=== PATIENT | male | born 1985 | race Caucasian/White ===

== ENCOUNTER 2018-10-15 10:21 | Outpatient (CLI) | payer OTHER ==
--- NOTE | 2018-10-15 12:42 | MRI Report ---
Reason: PAIN IN LEFT KNEE Procedure Date: 10/15/2018 Accession Number: [id number] / [id number] Procedure: MRI - Knee LT W/O CPT Code: FULL RESULT: EXAM: LEFT KNEE MRI WITHOUT CONTRAST EXAM DATE: 10/15/2018 11:14 AM. CLINICAL HISTORY: Left knee pain with clicking. COMPARISON: None. TECHNIQUE: Multiplanar, multisequence T1-weighted and fluid-sensitive sequences of the knee without contrast. Other: None. FINDINGS: Bones: Tiny subcortical cysts and mild subchondral marrow edema at the medial patellar facet. No acute fracture or bone lesions. 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 Medial Meniscus: Horizontal tear at the posterior horn and body. There is a namrata-meniscal cyst adjacent to the posterior medial aspect of the medial meniscus which measures approximately 3 cm superior inferior by 1.7 cm medial to lateral by 2.2 cm AP. There is a smaller namrata-meniscal cyst adjacent to the posterior aspect of the posterior horn. Lateral Meniscus: The lateral meniscus is intact. Cruciate Ligaments: The anterior and posterior cruciate ligaments are intact. Collateral Ligaments: The medial collateral and lateral collateral ligamentous structures are intact. Tendons: The quadriceps, patellar, semimembranosus, and popliteus tendons are unremarkable. Musculature: No edema or fatty atrophy. Other: No effusion. No popliteal cyst. No loose bodies. The medial and lateral retinacula are intact. The subcutaneous tissues and fat pads are unremarkable. IMPRESSION: 1. Focal grade I-II chondromalacia, tiny subcortical cysts, and mild subchondral marrow edema at the medial patellar facet. 2. Horizontal tear at the posterior horn and body of the medial meniscus. Namrata-meniscal cyst adjacent to the posterior medial and posterior aspects of the posterior horn medial meniscus. [facility]
== END 2018-10-15 10:22 | disposition home or self-care (01) ==
LOC: DI 10:21
PROVIDERS: ATTEND General Practice
DX: S83.242A Other tear of medial meniscus, current injury, left knee, initial encounter (principal); M94.262 Chondromalacia, left knee